=== PATIENT | female | born 1990 | race Caucasian/White ===

== ENCOUNTER 2017-12-10 23:37 | Emergency (ER) | payer OTHER, MEDICAID ==
[2017-12-11] MEDS: ALBUTEROL 0.5% (NEB) 2.5 MG/0.5 ML AMP INH (05:06)
== END 2017-12-11 06:16 | disposition home or self-care (01) ==
LOC: FTE 23:37
DX: J45.901 Unspecified asthma with (acute) exacerbation (principal); J20.9 Acute bronchitis, unspecified
CPT/HCPCS: 94644; 99284-25